=== PATIENT | female | born 1960 | race Caucasian/White ===

== ENCOUNTER 2023-12-01 20:55 | Emergency (ER) | payer BC ==
[2023-12-01 21:23] VITALS: RESP 18; TEMP 98
--- NOTE | 2023-12-01 21:46 | ED ---
Lower Extremity Injury HPI - General Source: patient, RN notes reviewed Mode of arrival: wheelchair Limitations: no limitations - History of Present Illness MD Complaint: knee injury <Jannet Bergman - Last Filed: 12/01/23 21:45> <Rashi Ramachandran - Last Filed: 12/01/23 22:34> - General Chief Complaint: Extremity Injury, Lower Stated Complaint: Fall, R Knee Injury Time Seen by Provider: 12/01/23 21:40 - History of Present Illness Initial Comments: Quick Note: This is a 66-year-old female who presents to the emergency department for knee pain. States that she tripped and fell shortly before arrival and landed on both knees. Most of the pain is over the right knee, but both are painful. Denies hitting her head or sustaining any other injuries. (Jannet Bergman) 63-year-old female with mechanical fall falling on both knees. Patient noted immediate swelling to the right knee. She was able to ambulate but had some pain. No other injury. Injury isolated to the bilateral knees worse on the right. (Rashi Ramachandran) - Related Data Allergies Allergy/AdvReac Type Severity Reaction Status Date / Time No Known Allergies Allergy Verified 12/01/23 21:23 Review of Systems ROS Other: All systems not noted in ROS Statement are negative. <Jannet Bergman - Last Filed: 12/01/23 21:45> ROS Other: All systems not noted in ROS Statement are negative. <Rashi Ramachandran - Last Filed: 12/01/23 22:34> ROS Statement: Those systems with pertinent positive or pertinent negative responses have been documented in the HPI. Past Medical History Additional Past Medical History / Comment(s): syncope History of Any Multi-Drug Resistant Organisms: None Reported Additional Past Surgical History / Comment(s): loop, broken neck Past Psychological History: No Psychological Hx Reported Smoking Status: Current every day smoker Past Alcohol Use History: Rare Past Drug Use History: None Reported <Jannet Bergman - Last Filed: 12/01/23 21:45> General Exam Limitations: no limitations <Jannet Bergman - Last Filed: 12/01/23 21:45> General appearance: alert, appears intoxicated Head exam: Present: atraumatic, normocephalic Eye exam: Present: normal appearance, PERRL ENT exam: Present: normal exam Neck exam: Present: normal inspection. Absent: tenderness, meningismus Respiratory exam: Present: normal lung sounds bilaterally. Absent: respiratory distress, wheezes Cardiovascular Exam: Present: regular rate, normal rhythm Extremities exam: Present: joint swelling (Knee effusion on the right, normal range of motion bruising to both knees.) <Rashi Ramachandran - Last Filed: 12/01/23 22:34> - General Exam Comments Initial Comments: Visual Physical Exam Vital signs reviewed General: Well-appearing, nontoxic, no acute distress. Head: Normocephalic, atraumatic Eyes: PERRLA, EOMI ENT: Airway patent Chest: Nonlabored breathing Skin: No visual rash, normal skin tone Neuro: Alert and oriented 3 Musculoskeletal: No gross abnormalities (Jannet Bergman) Course Vital Signs 12/01/23 21:20 Temperature 98 F Pulse Rate 60 Respiratory 18 Rate Blood Pressure 149/88 O2 Sat by Pulse 99 Oximetry Medical Decision Making <Jannet Bergman - Last Filed: 12/01/23 21:45> <Rashi Ramachandran - Last Filed: 12/01/23 22:34> - Medical Decision Making I performed the QuickNote portion of this chart. Signed Jannet Bergman PA-C. (Jannet Bergman) Was pt. sent in by a medical professional or institution ([facility], [facility], urgent care, hospital, or detention...) When possible be specific @ -No Did you speak to anyone other than the patient for history (EMS, parent, family, police, friend...)? What history was obtained from this source @ -No Did you review nursing and triage notes (agree or disagree)? Why? @ -I reviewed and agree with nursing and triage notes Were old charts reviewed (outside hosp., previous admission, EMS record, old EKG, old radiological studies, urgent care reports/EKG's, detention records)? Report findings @ -No old charts were reviewed Differential Musculoskeletal Muscular strain, contusion, ligament sprain, fracture, arthritis, septic arthritis, bursitis, cellulitis, muscle spasm, nerve compression, DVT, arterial occlusion, herpes zoster, electrolyte abnormality, tumor.... This is not meant to be in all inclusive list EKG interpreted by me (3pts min.). @ -As above X-rays interpreted by me (1pt min.). @ -X-rays of the bilateral knees are obtained which are negative for displaced fracture or dislocation. CT interpreted by me (1pt min.). @ -None done U/S interpreted by me (1pt. min.). @ -None done What testing was considered but not performed or refused? (CT, X-rays, U/S, labs)? Why? @ -None What meds were considered but not given or refused? Why? @ -None Did you discuss the management of the patient with other professionals (professionals i.e. Dr., PA, [facility], lab, RT, psych nurse, social service assistant, powdered sugar pulverizer operator, teacher, worldwide chief creative officer, shelter case manager)? Give summary @ -No Was smoking cessation discussed for >3mins.? @ -No Was critical care preformed (if so, how long)? @ -No Were there social determinants of health that impacted care today? How? (Homelessness, low income, unemployed, alcoholism, drug addiction, transportation, low edu. Level, literacy, decrease access to med. care, nursing home, rehab)? @ -No Was there de-escalation of care discussed even if they declined (Discuss DNR or withdrawal of care, Hospice)? DNR status @ -No What co-morbidities impacted this encounter? (DM, HTN, Smoking, COPD, CAD, Cancer, CVA, ARF, Chemo, Hep., AIDS, mental health diagnosis, sleep apnea, morbid obesity)? @ -None Was patient admitted / discharged? Hospital course, mention meds given and route, prescriptions, significant lab abnormalities, going to OR and other pertinent info. @ -63-year-old with mechanical fall, predominantly right knee injury. Patient has hematoma and effusion to the right knee. She is able to ambulate in the emergency department. X-rays are negative. Patient will ice and elevate the knee, follow-up with her primary care provider. Undiagnosed new problem with uncertain prognosis? @ -No Drug Therapy requiring intensive monitoring for toxicity (Heparin, Nitro, Insulin, Cardizem)? @ -No Were any procedures done? @ -No Diagnosis/symptom? @ -Knee contusion Acute, or Chronic, or Acute on Chronic? @ -Acute Uncomplicated (without systemic symptoms) or Complicated (systemic symptoms)? @ -Default Side effects of treatment? @ -No Exacerbation, Progression, or Severe Exacerbation? @ -No Poses a threat to life or bodily function? How? (Chest pain, [place], [place], pneumonia, PE, COPD, DKA, ARF, appy, cholecystitis, CVA, Diverticulitis, Homicidal, Suicidal, threat to staff... and all critical care pts) @ -No (Rashi Ramachandran) Disposition <Jannet Bergman - Last Filed: 12/01/23 21:45> Is patient prescribed a controlled substance at d/c from ED?: No Time of Disposition: 22:33 <Rashi Ramachandran - Last Filed: 12/01/23 22:34> Clinical Impression: Contusion of knee Disposition: HOME SELF-CARE Condition: Stable Instructions (If sedation given, give patient instructions): Knee Sprain (ED) Referrals: None,Stated [Primary Care Provider] - 1-2 days
--- NOTE | 2023-12-01 22:01 | XR ---
EXAMINATION TYPE: XR knee complete bilateral DATE OF EXAM: 12/01/2023 9:57 PM CLINICAL INDICATION:Female, 63 years old with history of Fall; [facility] COMPARISON: None. TECHNIQUE: The Bilateral knee(s) was examined in Frontal, lateral and oblique projections. FINDINGS: No evidence of any acute osseous pathology, soft tissue swelling, or joint effusion is no filomena. IMPRESSION: No acute osseous pathology of the right or left knee. [facility], , 12/01/2023 9:58 PM
[2023-12-01 23:04] VITALS: BP 145/88; PULSE 93
== END 2023-12-01 23:05 | disposition home or self-care (01) ==
LOC: EC 20:55
CPT/HCPCS: 99283